=== PATIENT | female | born 1975 | race Caucasian/White ===

== ENCOUNTER → 2021-02-09 | Day surgery (SDC) | payer BC | END | disposition home or self-care (01) | LOC: JRADUS-SUR 07:43 | PROVIDERS: ATTEND Family Medicine Geriatric Medicine | PROC: 0H9T3ZX Drainage of Right Breast, Percutaneous Approach, Diagnostic (ICD-10-PCS; principal; 2021-02-09) | DX: N64.9 Disorder of breast, unspecified (principal); Z53.8 Procedure and treatment not carried out for other reasons | CPT/HCPCS: 76642-TC-RT ==